=== PATIENT | female | born 1970 | race Caucasian/White ===

== ENCOUNTER 2019-11-26 07:53 | Inpatient (IN) ==
[2019-11-21 12:16] LABS: Appearance,Urine CLEAR; Bilirubin,Urine NEG (NEG); Color,Urine YELLOW; Culture Indicated,Urine NO; Glucose,Urine (UA) NEGATIVE (NEG); Ketones,Urine NEG (NEG); Leukocyte Esterase,Urine NEG /uL (NEG); Nitrate,Urine NEG (NEG); Protein,Urine NEG (NEG); Specific Gravity,Urine 1.027 (1.000-1.035); Urine Blood NEG mg/dL (<0.03); Urobilinogen,Urine NEG (NEG)
[2019-11-21 13:32] LABS: Basophils # (Auto) 0.06 K/mcL (0.00-0.30); Basophils % (Auto) 1.2 % (0.0-2.0); Eosinophils % (Auto) 7.9 % (0.0-7.0); Granulocytes % (Auto) 53.9 % (38.0-78.0); Hematocrit 38.3 % (34.1-44.9); Hemoglobin 12.1 g/dL (11.2-15.7); Lymphocytes # (Auto) 1.52 K/mcL (1.50-4.80); Lymphocytes % (Auto) 29.9 % (15.5-49.0); Mean Cell Volume 96.2 fL (80.0-100.0); Mean Corpuscular HGB Conc 31.6 g/dL (31.0-36.0); Mean Platelet Volume 11.5 fL (7.4-10.4); Monocytes # (Auto) 0.36 K/mcL (0.10-0.90); Monocytes % (Auto) 7.1 % (1.0-12.0); Platelet Count 219 K/mcL (140-440); RBC 3.98 M/mcL (3.59-5.38); Red Cell Distribution Width 12.3 % (11.5-14.5); WBC 5.1 K/mcL (4.50-11.00)
[2019-11-21 13:37] LABS: ALT/SGPT 15 U/l (0-40); AST/SGOT 15 U/l (0-37); Albumin 4.2 gm/dL (3.2-5.2); Albumin/Globulin Ratio 1.7 (1.0-2.3); Alkaline Phosphatase 64 U/L (39-117); Bilirubin,Total 0.4 mg/dL (0.0-1.0); Blood Urea Nitrogen 23 mg/dl (6-20); Calcium 8.9 mg/dl (8.6-10.4); Carbon Dioxide 27 mmol/L (22-30); Chloride 104 mmol/L (96-108); Globulin 2.5 gm/dL (2.2-3.7); Glomerular Filtration Rate 100; Glucose 69 mg/dL (70-105)
[2019-11-21 14:09] LABS: Estimated Average Glucose(eAG) 114 mg/dL; Hemoglobin A1C 5.6 % HGB (4.0-6.0)
[~2019-11-26 07:53] MED LIST: CELECOXIB 200 MG CAPSULE PO SCH; IPRATROPIUM/ALBUTEROL 3 ML AMPUL.NEB NEB PRN; PREGABALIN 75 MG CAPSULE PO SCH; SCOPOLAMINE 1 PATCH PATCH TOPICAL PRN; ceFAZolin 2 GM in DEXTROSE 5% IN WATER 50 ML IV SCH; oxyCODONE 10 MG TAB.ER.12H PO SCH
[2019-11-26] MEDS ORDERED: KETAMINE 100 MG/ML ML IV ONE (10:25)
[2019-11-26] MEDS ORDERED: SUCCINYLCHOLINE 20 MG/ML ML IV ONE (10:25)
[2019-11-26] MEDS ORDERED: ROPIVACAINE HCL/PF 30 ML VIAL IJ ONE (10:25)
[2019-11-26] MEDS ORDERED: LIDOCAINE HCL/PF 100 MG/5 ML SYRINGE IV ONE (10:25)
[2019-11-26] MEDS ORDERED: TRANEXAMIC ACID 1,000 MG/10 ML VIAL IV ONE ×2 (10:25→11:42)
[2019-11-26] MEDS ORDERED: HYDROmorphone 2 MG/ML VIAL IV ONE (10:25)
[2019-11-26] MEDS ORDERED: DEXAMETHASONE 10 MG/ML VIAL IV ONE (10:25)
[2019-11-26] MEDS ORDERED: ONDANSETRON 4 MG/2 ML VIAL IV ONE (10:25)
[2019-11-26] MEDS ORDERED: PROPOFOL 200 MG/20 ML VIAL IV ONE (10:25)
[2019-11-26] MEDS ORDERED: ONDANSETRON 4 MG/2 ML VIAL IV PRN (11:19)
[2019-11-26] MEDS ORDERED: fentaNYL 100 MCG/2 ML VIAL IV PRN (11:19)
[2019-11-26] MEDS ORDERED: NALOXONE HCL 0.4 MG/ML VIAL IV PRN (11:19)
[2019-11-26] MEDS ORDERED: PROMETHAZINE 25 MG/ML VIAL IV PRN (11:19)
[2019-11-26] MEDS ORDERED: LACTATED RINGERS 250 ML IV PRN (11:19)
[2019-11-26] MEDS ORDERED: diphenhydrAMINE 50 MG/ML VIAL IV PRN (11:19)
[2019-11-26] MEDS ORDERED: IPRATROPIUM/ALBUTEROL 3 ML AMPUL.NEB NEB PRN (11:19)
[2019-11-26] MEDS ORDERED: MEPERIDINE 25 MG/ML SYRINGE IV PRN (11:19)
[2019-11-26] MEDS ORDERED: ACETAMINOPHEN 1,000 MG/100 ML BOTTLE IV ONE (11:19)
[2019-11-26] MEDS ORDERED: LACTATED RINGERS 1,000 ML IV SCH (11:30)
[2019-11-26] MEDS ORDERED: TEMAZEPAM 15 MG CAPSULE PO PRN (11:42)
[2019-11-26] MEDS ORDERED: POLYETHYLENE GLYCOL 3350 17 GM PACKET PO PRN (11:42)
[2019-11-26] MEDS ORDERED: MAGNESIUM HYDROXIDE 30 ML ORAL.SUSP PO PRN (11:42)
[2019-11-26] MEDS ORDERED: oxyCODONE/APAP 5/325MG TABLET PO PRN (11:42)
[2019-11-26] MEDS ORDERED: BISACODYL 10 MG SUPP.RECT PR PRN (11:42)
[2019-11-26] MEDS ORDERED: FLEETS ADULT ENEMA PR PRN (11:42)
[2019-11-26] MEDS ORDERED: BENZOCAINE/MENTHOL 1 LOZENGE PO PRN (11:42)
--- NOTE | 2019-11-26 11:42 | Brief Operative Note ---
Date of procedure: 11/26/19 Pre-op diagnosis: Left shoulder DJD Post-op diagnosis: same Procedure: Left total shoulder arthroplasty Grafts/Implants: Yes (Franca santiagoiciti 1 nucleus, 43x16, small 30 ) Anesthesia: GETA, regional Findings: arthritis Complications: none Surgeon: Vidal Ca Electrician Supervisor: Lee Sales Estimated blood loss (cc): 150 Specimens Removed/Pathology: none sent Condition: stable Disposition: PACU
[2019-11-26] MEDS ORDERED: ACYCLOVIR 400 MG TABLET PO PRN (11:45)
--- NOTE | 2019-11-26 12:34 | Operative Note ---
DATE OF OPERATION: 11/26/2019 PREOPERATIVE DIAGNOSIS: Left shoulder severe osteoarthritis. POSTOPERATIVE DIAGNOSIS: Left shoulder severe osteoarthritis. PROCEDURE PERFORMED: Left total shoulder arthroplasty placing a Tornier Simplicity size 1 nucleus, a 43 x 16 humeral head on a size small 30 radius of curvature 1/4 lock glenoid. SURGEON: Vidal Ca MD HOUSING PROPERTY MANAGER: Saul Sales PA-C. This provider's expertise and technical skill were required throughout the case. The PA assisted with preoperative coordination, intraoperative retraction, wound closure, dressing and splint application, as well as postoperative documentation and care coordination. ANESTHESIA: General plus regional block. DRAINS: None. SPECIMENS: Humeral head fragment which was discarded. BLOOD LOSS: 150 mL COMPLICATIONS: None. POSTOPERATIVE CONDITION: Stable. INDICATIONS FOR SURGERY: This is a 49-year-old female who had longstanding shoulder pain. She had undergone arthroscopy about a year ago. At that time we noted a fairly severe osteoarthritis. She continued to have pain that progressed over time. She did have a history of a right total shoulder arthroplasty with good result. FINDINGS AT SURGERY: She had full-thickness cartilage loss off the humeral head. Post-procedure showed good component position and joint stability. PROCEDURE IN DETAIL: The patient had been seen preoperatively and informed consent had been obtained after discussion of risks and benefits of surgery. Risks including, but not limited to, bleeding, possibly requiring transfusion; infection, possibly requiring implant removal and prolonged IV antibiotics; injury to nerves, blood vessels, other surrounding structures; anesthetic risks; incomplete or no resolution of symptoms; stiffness; pain; instability, fracture, possibility of needing further joint or revision surgery in the future. She understood these risks and wished to proceed. Correct operative site was marked and the patient was taken to the operating room after regional anesthesia was given. She was taken to the operating room and general anesthesia was induced. She was carefully positioned in the beach chair position and pressure points carefully padded. Left shoulder and upper extremity were then carefully prepped and draped in normal sterile fashion and a timeout performed verifying patient name, operative site, and plan. Ioban was used to cover all skin surfaces. Her previous incision was incorporated into a deltopectoral incision with a scalpel through skin and subcutaneous tissue. Hemostasis was obtained with Bovie cautery. Careful blunt dissection was taken down onto the deltopectoral interval and the cephalic vein was identified. IrriSept was irrigated and then we carefully bluntly dissected medial to the cephalic vein down through the interval. We then developed the subdeltoid space and Choe deltoid retractor was placed. The lateral edge of the conjoint tendon was identified and a blue handle retractor was placed underneath. She had had a previous biceps tenodesis. I went ahead and opened the bicipital groove. A curved osteotome was used to perform a lesser tuberosity osteotomy to detach the subscapularis. A #2 Ethibond was then looped around the fragment with a traction stitch. We then dislocated the humeral head out anteriorly and released capsule around the inferior medial neck. The curved osteotome was used to remove osteophytes. A cut guide was placed along her anatomic neck and pinned into place and then we made our humeral head cut. She sized to a size 1 nucleus. We used the guide to place our central pin and then a calcar planer was used to contact bone circumferentially. We then used the central reamer and then the Becca punch to place Simplicity trial with the cut protector on it. We then exposed the glenoid, subluxing the humerus posteriorly. We released the capsule circumferentially removed labrum circumferentially. Careful attention was taken inferiorly to stay on bone. Once we had adequate glenoid exposure, we used the sizing guide to determine size small 30 glenoid. We used the pin guide angled a little more posterior to go along her scapular spine. We used the minimally invasive reamer until we had contacted bone circumferentially and then the windshield wiper reamer was used to get superior and inferior. We then drilled our central peg over the guide pin and then removed the guide pin. The peripheral peg drill guide was used to drill our three peripheral pegs. We then checked with the trial and had good fit, so we went ahead and opened a size small 30 CortiLoc glenoid component. We irrigated the joint with IrriSept. Cement was mixed and DBX bone graft was placed in the central flutes. We then injected cement into the three peripheral peg holes and pressurized and then impacted the glenoid component. This was held absolutely still until cement had fully hardened. We then exposed the proximal humerus. We removed the Simplicity trial. We opened a size 1 nucleus. We irrigated the proximal humerus with IrriSept, after a minute pulse lavaged with saline. We then impacted the nucleus until it was fully seated and then the 43 x 16 humeral head was impacted onto the nucleus. The shoulder was reduced. We checked and it subluxed posteriorly 50%. We then made drill holes in the bicipital groove and used a #2 FiberWire [id number] going through bone around the lesser tuberosity osteotomy in a [id number]-[id number] stitch to repair our subscapularis back into anatomic position. I then used a free needle to pass the two ends of the Ethibond starting in the bicipital groove and coming out in the proximal humeral bone lateral to it. These were then tied in a horizontal mattress stitch lateral to the groove. A [id number] #2 FiberWire was used in the rotator interval as well. We then irrigated IrriSept again, after a minute pulse lavaged with saline. A #1 Vicryl was used to close the deltopectoral interval and then final IrriSept irrigation was done, after a minute pulse lavage, and then 2-0 Monocryl for subcutaneous and leda for skin. Xeroform sterile dressings were applied. Arm was placed in a Donjoy abductor immobilizer and then patient was awakened, extubated, and transferred to recovery in stable condition. BJB:bret Job ID: [id number] Doc ID: [id number] Vidal Ca MD
--- NOTE | 2019-11-26 12:47 | XRay Report ---
HISTORY: Postop left shoulder arthroplasty FINDINGS: Patient has a well-positioned total shoulder prosthesis. There is no fracture or abnormal soft tissue calcification around the joint. Incidentally noted is disc space narrowing and spur formation at C6-7. IMPRESSION: Well-positioned left shoulder prosthesis Interpreted and Authenticated by: Rao Vera 11/26/19
[2019-11-26] MEDS: 0.9 % SODIUM CHLORIDE 1,000 ML IV SCH ×2 (13:24→23:22)
[2019-11-26] MEDS ORDERED: MEPERIDINE 25 MG/ML SYRINGE IV ONE (13:29)
[2019-11-26] MEDS: 0.9 % SODIUM CHLORIDE 10 ML SYRINGE IV SCH ×2 (14:03→21:29)
[2019-11-26] MEDS: ONDANSETRON 4 MG/2 ML VIAL IV PRN ×3 (14:47→23:21)
[2019-11-26] MEDS: ceFAZolin 1 GM VIAL IV SCH (17:50)
[2019-11-26] MEDS: HYDROmorphone 2 MG/ML VIAL IV PRN ×2 (19:11→23:34)
[2019-11-26] MEDS: CALCIUM W/VIT D3 500 MG TABLET PO SCH (20:44)
[2019-11-26] MEDS: DOCUSATE SODIUM 100 MG CAPSULE PO SCH (20:48)
[2019-11-26] MEDS: KETOROLAC 30 MG/ML VIAL IV PRN (20:48)
[2019-11-26] MEDS ORDERED: SENNOSIDES 1 TABLET PO SCH (21:00)
[2019-11-26] MEDS ORDERED: tiZANidine 4 MG TABLET PO SCH (21:00)
[2019-11-26] MEDS ORDERED: OXYBUTYNIN CHLORIDE 5 MG TABLET PO SCH (21:00)
[2019-11-27] MEDS: ceFAZolin 1 GM VIAL IV SCH (02:01)
[2019-11-27] MEDS: ONDANSETRON 4 MG/2 ML VIAL IV PRN (04:34)
[2019-11-27] MEDS: KETOROLAC 30 MG/ML VIAL IV PRN (04:34)
[2019-11-27] MEDS: 0.9 % SODIUM CHLORIDE 10 ML SYRINGE IV SCH (05:46)
--- NOTE | 2019-11-27 07:28 | Discharge Summary ---
Providers - Providers Patient information: Note initiated : 11/27/19 at 7:26 am Service Date, if different from initiated Date: [] Patient: Dixie Rebollar 49 y/o F admitted on 11/26/19 for Left Total Shoulder Arthroplasty. Chief Complaint: [] Discharge date: 11/27/19 Hospitalization Hospital Course: Pt was admitted for a L TSA. Pt underwent procedure on the day of admission. Pt spent one night on the floor for IV pain meds, IV abx, and PT. Pt discharged on post-op day 1. Discharge diagnosis: L shoulder OA Exam - Exam Clean and dry: Yes Weight bearing status: none Ortho Discharge - TSA - Patient Instructions Diet: Regular Diet Activity: non weight bearing Total Shoulder Protocol: Leave immobilizer in place except for bathing and ROM. Abduction pillow. Continue to wear sling until seen by physician. Codman Pendulum : These exercises use momentum produced by your body to move your shoulder joint. Bend your knees and shift your weight to your front leg, then back, allowing your arm to swing in the same directions. Using the same technique, alternately shift your weight between your right and left legs, allowing your arm to swing from side to side. These exercises are also performed in counterclockwise and clockwise circular motions. Typically these exercises are performed several times per day, for a set number repetitions or minutes, such as 20 times in a row or 5 minutes at a time. Dressing Care: May shower in 2 days - Follow Up Plan Disposition: Home, Self-Care Prognosis: Good Rehab Potential: Good Overall status at discharge: patient is progressing back to baseline - Orders For Discharge Prescriptions: oxyCODONE/APAP [Percocet 5-325 mg] 1 - 2 tab PO Q4HP PRN #75 tab PRN Reason: Per Pain Protocol Prescription Printed Pending Studies Resuscitation Status Full Code Diet Regular Diet Start SunNov 25 1144 Calcium/Vitamin D (Calcium W/Vit D3) 1,000 mg PO BID [facility] Last Admin: 11/26/19 20:44 Dose: 1,000 mg Documented by: DIO Docusate Sodium (Colace) 100 mg PO BID [facility] Last Admin: 11/26/19 20:48 Dose: 100 mg Documented by: OTONIELNSISIDRO Hydromorphone HCl (Dilaudid) 0 mg IV Q2HP PRN; Protocol PRN Reason: Per Pain Protocol Last Admin: 11/26/19 23:34 Dose: 0.5 mg Documented by: Admin: 11/26/19 19:11 Dose: 0.5 mg Documented by: DIO Sodium Chloride (Sodium Chloride 0.9%) 1,000 mls @ 100 mls/hr IV .Q10H [facility] Last Admin: 11/26/19 23:22 Dose: 100 mls/hr Documented by: Infusion: 11/26/19 23:22 Dose: 100 mls/hr Documented by: Admin: 11/26/19 13:24 Dose: 100 mls/hr Documented by: PIETER Ketorolac Tromethamine (Toradol) 30 mg IV Q6HP PRN; Protocol PRN Reason: Per Pain Protocol Stop: 11/28/19 11:44 Last Admin: 11/27/19 04:34 Dose: 30 mg Documented by: Admin: 11/26/19 20:48 Dose: 30 mg Documented by: DIO Ondansetron HCl (Zofran) 4 mg IV Q4HP PRN; Protocol PRN Reason: Nausea And Vomiting Last Admin: 11/27/19 04:34 Dose: 4 mg Documented by: Admin: 11/26/19 23:21 Dose: 4 mg Documented by: Admin: 11/26/19 19:04 Dose: 4 mg Documented by: Admin: 11/26/19 14:47 Dose: 4 mg Documented by: PIETER Oxybutynin Chloride (Ditropan) 5 mg PO [facility] Last Admin: 11/26/19 20:46 Dose: 5 mg Documented by: DIO Senna (Senokot) 2 tab PO [facility] Last Admin: 11/26/19 20:47 Dose: 2 tab Documented by: DIO Sodium Chloride (Saline Flush) 10 ml IV Q8 [facility] Last Admin: 11/27/19 05:46 Dose: Not Given Documented by: Admin: 11/26/19 21:29 Dose: Not Given Documented by: Admin: 11/26/19 14:03 Dose: Not Given Documented by: [id number] Tizanidine HCl (Zanaflex) 2 mg PO [facility] Last Admin: 11/26/19 20:46 Dose: 2 mg Documented by: DIO Shift Summary 11/27/19 04:50 Shift Summary by Yane Gómez The patient has complained of severe nausea, vertigo, dizziness with postural position changes in bed and with transfers out of bed since post op yesterday along with a severe frontal lobe headache. She has been medicated with Zofran three times this shift (last dose at 429), Dilaudid 0.5 mg twice and Toradol twice (last dose 429). She attempted to take her HS meds with a few bites of food and had 600 ml of light colored bile colored emesis. She has a 18 gauge IV to her right forearm infusing NS at 100 ml/hr and is voiding quantity sufficient this shift with 1 SBA to the bedside commode. She received a regional block to her left shoulder as well as general anesthesia yesterday and her CMS are intact and her block has worn off as of 429 this morning, she has a immobilizer/brace in place and ice compresses provided periodically to shoulder/neck/head site for non pharmacologic interventions, AV boots in place. Her plan is to discharge today to home when tolerating PO intake and meds, will update at bedside. Initialized on 11/27/19 04:50 - END OF NOTE
[2019-11-27] MEDS ORDERED: PROMETHAZINE 25 MG TABLET PO PRN (07:45)
[2019-11-27] MEDS: CALCIUM W/VIT D3 500 MG TABLET PO SCH (08:08)
[2019-11-27] MEDS: DOCUSATE SODIUM 100 MG CAPSULE PO SCH (08:09)
[2019-11-27] MEDS ORDERED: VITAMIN D3 5,000 UNIT CAPSULE PO SCH (09:00)
[2019-11-27] MEDS ORDERED: [UNRECOGNIZED DRUG - OTHER] PO SCH (09:00)
[2019-11-27] MEDS: 0.9 % SODIUM CHLORIDE 1,000 ML IV SCH (11:09)
== END 2019-11-27 12:50 | disposition home or self-care (01) | DRG 483 ==
LOC: MEDSUR 07:53
PROVIDERS: ADMIT Orthopaedic Surgery; ATTEND Orthopaedic Surgery